=== PATIENT | male | born 1980 | race Caucasian/White ===

== ENCOUNTER 2018-04-16 04:35 | Emergency (ER) | payer SELFPAY ==
[~2018-04-16] VITALS: Ht 185.4 cm; Wt 89.9 kg
[2018-04-16 04:38] VITALS: BP 176/103; PULSE 76; TEMP 36.7; O2SAT 99; Ht 185.4 cm; Wt 89.9 kg
[2018-04-16] MEDS ORDERED: CLIN300C2 PO (04:54)
[2018-04-16] MEDS ORDERED: HYDR-5688 PO (04:54)
[2018-04-16] MEDS ORDERED: NORCO 5/325MG HOME PACK PO ONE (05:00)
[2018-04-16] MEDS ORDERED: CLINDAMYCIN 150MG HOME PACK PO ONE (05:00)
--- NOTE | 2018-04-16 05:04 | EMERGENCY ROOM VISIT NOTE ---
History First contact with patient: 04:42 Chief Complaint: DENTAL PAIN Stated Complaint: DENTAL PAIN Nursing Triage Summary: R upper tooth ache. Pt suspects its his wisdom tooth. Pt reports pain started 1 week ago and is worse when drinking cold liquids. Pt reports [employer] pain was a 10/10. Now pain is tolerable at 3/10. Did not contact dentist. History of Present Illness The patient is a 38 year old male who presents to the Emergency Room with complaints of intermittent pain of a right upper tooth for the past 1-2 weeks. The patient states the pain has been waxing and waning and initially was improved with [id number] Tylenol. He states that over the past 2 or 3 days his discomfort has significantly worsened, and states the pain was a 10/10 earlier this evening. The patient does not have injury or trauma to the area. He is not following regularly with a dentist. He has not had fever or chills. He does report an allergy to penicillins. His discomfort is currently rated a 3 /10. It does worsen with eating and drinking. He does smoke tobacco. No fevers or chills. No facial swelling. Review of Systems More than 10 systems were reviewed and otherwise negative with the exception of history of present illness. Past Medical/Surgical History No chronic medical disease Family History No pertinent family history Social History Smoking Status: Current Every Day Smoker Alcohol Use: occasionally Drug Use: none Housing Status: lives with family Occupation Status: employed Current/Historical Medications Scheduled Clindamycin Hcl (Cleocin), 300 MG PO QID Scheduled PRN Hydrocodone/Acetaminophen 5MG/325MG ([place] 5MG/325MG), 1-2 TABLET PO Q6 PRN for Pain Physical Exam Vital Signs Date Time Temp Pulse Resp B/P (MAP) Pulse Ox O2 Delivery O2 Flow Rate FiO2 04/16/18 04:38 36.7 76 16 176/103 99 Room Air Physical Exam VITALS: Vitals are noted on the nurse's note and reviewed by myself. Vital signs stable. GENERAL: White male who appears in no acute distress. He is cooperative with the examination. MOUTH: Mucous membranes moist. Dentition in overall repair. The right upper wisdom tooth, #1 tooth, is broken posteriorly and appears to be exiting at an angle from normal anatomic position. This tooth is tender to percussion without obvious abscess. Uvula is midline. No tenderness underneath the tongue. No facial swelling or evidence of Celso's. NECK: Supple without nuchal rigidity. No lymphadenopathy. No thyromegaly. Cervical spine is nontender. HEART: Regular rate and rhythm without murmurs gallops or rubs. LUNGS: Clear to auscultation bilaterally without wheezes, rales or rhonchi. No retractions or accessory muscle use. Medical Decision & Procedures ED Course Physical exam and history were performed. Nursing notes, EMR, and Medication List were personally reviewed. Patient appears to have right upper dental pain for the past several days. On examination the patient does have a broken tooth that is entering the oropharynx at an angle. This is likely the wisdom tooth, #1 tooth. No other significant infectious findings are noted. The patient has never been seen here for dental related complaints. He will be given a course of clindamycin and Vicodin. The patient is to follow with a dentist as soon as reasonably possible for on ER with any new, worsening, or concerning symptoms. The chart was completed utilizing [facility] Speech Voice Recognition Software. Grammatical errors, random word insertions, pronoun errors, and incomplete sentences are an occasional consequence of this system due to software limitations, ambient noise, and hardware issues. Any formal questions or concerns about the content, text, or information contained within the body of this dictation should be directly addressed to the provider for clarification. . Medical Decision Differential diagnosis includes, but is not limited to: Dental pain, abscess, cellulitis, Celso's, facial infection, and others [place] Drug Monitoring Program Search Results: patient reviewed within database, no issues identified Impression Primary Impression: Pain, dental Departure Information Dispostion Home / Self-Care Condition GOOD Prescriptions Hydrocodone/Acetaminophen 5MG/325MG ([place] 5MG/325MG) Tab 1-2 TABLET PO Q6 Y for Pain, #15 TAB For Initial Treatment Prov: Gomez Peters PA-C 04/16/18 Clindamycin Hcl (CLEOCIN) 300 Mg Cap 300 MG PO QID for 10 Days, #40 CAP Prov: Gomez Peters PA-C 04/16/18 Forms HOME CARE DOCUMENTATION FORM, IMPORTANT VISIT INFORMATION Patient Instructions My [facility] Additional Instructions You were seen and evaluated today on an emergency basis only. This is not a substitute for, or an effort to provide, complete comprehensive medical care. It is not possible to recognize and treat all injuries or illnesses in a single emergency department visit. For this reason it is recommended that you followup with a dentist as soon as possible for definitive care. For baseline pain relief you may alternate ibuprofen and acetaminophen every 4 hours for pain control. Take 600 mg ibuprofen (Advil) and then 4 hours later take 1000 mg acetaminophen (Tylenol). Do not take more than 3000 mg acetaminophen in a single day. Clindamycin 4 times a day for 10 days. Increase dietary yogurt as this medication can cause an upset stomach. [place] (hydrocodone/acetaminophen) 5/325 mg: Take ONE or TWO pills by mouth every 6 hours as needed for worsening breakthrough pain. Do not drink or drive on [place]. This medication will likely make you tired. Do not take [place] and Tylenol at the same time as both contain acetaminophen. [place] may cause constipation. You may wish to take an ilur-sox-nahwthh stool softener like Colace if this occurs. You are welcome to return to the emergency department anytime with new, worsening, or concerning symptoms.
== END 2018-04-16 05:00 | disposition home or self-care (01) ==
LOC: C.EDB 04:36 → C.EDA 05:00
DX: K08.89 Other specified disorders of teeth and supporting structures (principal); Z88.0 Allergy status to penicillin; F17.200 Nicotine dependence, unspecified, uncomplicated

== ENCOUNTER 2024-12-30 13:53 | Inpatient (IN) ==
[2024-12-30] MEDS: OPTIRAY 320 125ml IV ONE (14:26)
[2024-12-30 14:27] LABS: iSTAT Creatinine 1.5 mg/dl (0.6-1.3); iSTAT Hemoglobin 15.6 g/dl (14.0-18.0); iSTAT Ionized Calcium 1.2 mmol/l (1.12-1.32); iSTAT Potassium 4.3 mmol/L (3.3-5.0)
[2024-12-30 14:29] LABS: Basophils % (auto) 0.7 %; Eosinophils # (auto) 0.02 K/uL (0.00-0.50); Eosinophils % (auto) 0.1 %; Hematocrit (blood only) 43.8 % (42.0-52.0); Hemoglobin 15.4 g/dl (14.0-18.0); Immature Granulocytes # (auto) 0.05 K/uL (0.01-0.20); Immature Granulocytes % (auto) 0.3 %; Lymphocytes # (auto) 1.89 K/uL (1.20-3.40); Lymphocytes % (auto) 13.2 %; Mean Corpuscular Hemoglobin 31.3 pg (25.0-34.0); Mean Corpuscular Hgb Conc 35.2 g/dL (32.0-36.0); Mean Platelet Volume 10.5 fL (9.4-12.4); Monocytes # (auto) 0.56 K/uL (0.11-0.59); Monocytes % (auto) 3.9 %; Neutrophils # (auto) 11.74 K/uL (1.40-6.50); Neutrophils % (auto) 81.8 %; Platelet Count 390 K/uL (130-400); RDW Coefficient of Variation 13.1 % (11.5-14.5); RDW Standard Deviation 42.7 fL (36.4-46.3); Red Blood Count 4.92 M/uL (4.70-6.10); White Blood Count 14.36 K/ul (4.8-10.8)
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
--- NOTE | 2024-12-30 14:33 | XRay Report ---
XR chest 1V portable HISTORY: 44 years-old Male neuro deficit, acute stroke suspected acute stroke like symptoms COMPARISON: CTA neck of same day TECHNIQUE: AP view of the chest FINDINGS: Cardiomediastinal and hilar silhouettes are unchanged. No pneumothorax, pleural effusion, airspace co nsolidation or pulmonary edema. Bones of the chest appear grossly intact. IMPRESSION: No acute process. ACT 112: Negative or not required by law. The above report was generated using voice recognition software. It may contain grammatical, syntax o r spelling errors. Electronically signed by: Imtiaz Molina M.D. 12/30/2024 2:31 PM
--- NOTE | 2024-12-30 14:37 | CT Scan Report ---
CT ANGIOGRAPHY OF THE NECK WITH CONTRAST CLINICAL HISTORY: neuro deficit, acute stroke suspected COMPARISON STUDY: No previous studies for comparison. Technique: CT angiography of the carotid and vertebral arteries was obtained using Optiray and 3D rec onstruction on an independent workstation. NASCET criteria was utilized. Automated exposure control was utilized for the study. A dose lowering technique was utilized adhering to the principles of ALA RA. CT DOSE: 1088.97 mGy.cm Findings: Visualized portions of the lung apices are unremarkable. There is no cervical lymphadenopat hy. There are no cervical spine fractures. The bilateral common carotid, cervical internal carotid an d vertebral arteries are patent. There is mild plaque within the common carotid and internal carotid arteries without stenosis. No dissection or aneurysm within the neck is present. The right vertebral artery is dominant and patent. The left vertebral artery is diminutive, likely on a congenital basis. CT of the head and CTA of the head will be reported separately. There are secretions within the righ t maxillary sinus. The left maxillary sinus is largely opacified. IMPRESSION: 1. No stenosis or dissection within the bilateral common carotid or cervical internal carotid arterie s. Mild atherosclerotic plaque. 2. Dominant, patent right vertebral artery. Diminutive left vertebral artery, likely on a congenital basis. ACT 112: Negative or not required by law. Electronically signed by: Silverio Zaragoza M.D. 12/30/2024 2:36 PM
[2024-12-30] MEDS: SODIUM CHLORIDE 0.9% 1,000 ML IV ONE (14:44)
[2024-12-30 14:46] LABS: Albumin Level 4.9 gm/dl (3.4-5.0); Bilirubin,Total 1.4 mg/dl (0.2-1.0); Calcium 9.5 mg/dl (8.6-10.3); Magnesium 2.1 mg/dl (1.7-2.4)
--- NOTE | 2024-12-30 14:47 | CT Scan Report ---
CT angio head w con, CT head/brain wo con CLINICAL HISTORY: 44 years-old Male with neuro deficit, acute stroke suspected. Acute strokelike s ymptoms COMPARISON STUDY: CTA neck of same day TECHNIQUE: Unenhanced axial CT scan of the brain is performed. Subsequently, following the IV adminis tration of 115 cc of Optiray, CT angiogram of the brain was performed from the skull base to the vert ex. Images are reviewed in the axial, sagittal, and coronal planes. 3-D MIPS images are created and a ssessed. IV contrast was administered without complication. All measurements were obtained according to NASCET criteria. A dose lowering technique was utilized adhering to the principles of ALARA. FINDINGS: CT BRAIN: There is no acute intracranial hemorrhage, midline shift, hydrocephalus, intra-axial mass, acute terr itorial infarct or acute extra-axial collections. No abnormal intra-axial or extra-axial enhancement. White matter hypodensities likely representing chronic microvascular ischemic disease. Ill-defined 3 cm hypodense focus within the left frontal lobe jones radiata and lentiform nucleus, image 17 serie s 2. Probable chronic bilateral frontal and left cerebral infarcts with encephalomalacia. Additional probable chronic left cerebellar infarct measuring 4 cm. Probable arachnoid cyst abutting the adjacent left frontal and temporal lobes appears a 5.7 x 2.2 x 7 .7 cm on image 15 series 2 and likely originates from the middle cranial fossa on the left and causes at least mild mass effect upon the adjacent cerebrum. No skull fracture. Mastoid air cells are clear . Paranasal sinus disease includes moderate to severe mucosal thickening of the maxillary sinuses wit h right maxillary air-fluid level. CT ANGIOGRAM OF THE BRAIN: The imaged bilateral internal carotid arteries are patent. The bilateral anterior and middle cerebral arteries are also patent. The right vertebral artery is dominant. The left humeral artery appears to be developmentally diminutive. The basilar and posterior cerebral arteries are patent. There is no a neurysm, high-grade stenosis, or proximal branch occlusion identified. Dural sinuses appear patent. IMPRESSION: 1. No acute intracranial hemorrhage, midline shift or acute territorial infarct. 2. There are several scattered areas of encephalomalacia noted within the cerebrum and cerebellum sug gestive of chronic infarcts. 3. Age indeterminate possibly acute or subacute 3 cm infarct of the left frontal lobe jones radiata and lentiform nucleus. Correlate with patient presentation to determine acuity. 4. 7.7 cm arachnoid cyst likely originates from the left middle cranial fossa and causes at least mil d mass effect upon the adjacent cerebrum. ACT 112: Negative or not required by law. The above report was generated using voice recognition software. It may contain grammatical, syntax o r spelling errors. Electronically signed by: Imtiaz Molina M.D. 12/30/2024 2:45 PM
[2024-12-30 14:49] LABS: INR 1.1 (0.9-1.1); Partial Thromboplastin Time 26 Seconds (21-31); Prothrombin Time 11.4 Seconds (9.0-12.0)
[2024-12-30 14:52] LABS: Albumin Globulin Ratio 1.5 (0.9-2); BUN Creatinine Ratio 17.5 (10-20); Creatinine Clr Calc Pharmacy 83.7 ml/min; Globulin 3.3 gm/dl (2.5-4.0); Total Protein 8.2 gm/dl (6.0-8.3)
[2024-12-30 14:55] LABS: Troponin I High Sensitivity 5.4 pg/ml (0-20)
[2024-12-30] MEDS: ASPIRIN CHEW 324 MG PO STA (15:43)
[2024-12-30] MEDS: TICAGRELOR 90 MG TAB PO ONE (15:43)
[2024-12-30] MEDS: ATORVASTATIN 40 MG TAB PO STA (15:59)
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
[2024-12-30] MEDS ORDERED: PHARMACIST DISCHARGE MED REC CONSULT PRN (18:55)
[2024-12-30] MEDS: GADOBUTROL 65ML VIAL IV ONE (19:32)
--- NOTE | 2024-12-30 19:59 | Magnetic Resonance Report ---
MRI BRAIN WITH and WITHOUT CONTRAST TECHNIQUE: An MRI examination of the brain was performed utilizing sagittal and axial T1-weighted images as well as axial T2-weighted, FLAIR, gradient echo and diffusion-weighted images. Postcontrast T1-weighted images were also acquired in axial and sagittal planes. IV CONTRAST: 8 mL of Gadavist was intravenously administered. INDICATION: Stroke COMPARISON: None. CT examinations from the same day are not viewable in our system for comparison FINDINGS: There are scattered areas of diffusion restriction in the left basal ganglia, left frontal and parietal lobes representing acute/subacute infarctions in the left MCA territorial distribution. No evidence of appreciable hemorrhagic transformation or midline shift Chronic encephalomalacia and gliosis are noted in the left cerebellum, left parietal lobe and bilateral frontal lobes from prior insults. There is a sizable arachnoid cyst over the left cerebral convexity exerting mild mass effect. There is no suspicious parenchymal or extra-axial enhancement. Rind of T1 hyperintensity over the encephalomalacia of left parietal lobe likely represent laminar necrosis The cerebellar tonsils are normal in position. The pituitary gland is not enlarged. There appears to be narrowing the flow-void of the left MCA M1 segment No intraorbital soft tissue mass lesion is observed. Moderate paranasal sinus disease. IMPRESSION: Acute to subacute infarctions in the left MCA territory distribution above. No evidence of significant hemorrhagic transformation or midline shifting. Multifocal areas of encephalomalacia and gliosis from prior insult involving the left cerebral and bilateral cerebral hemispheres Electronically signed by Magdy King 12-30-2024 7:58 PM
[2024-12-31 06:21] LABS: Basophils # (auto) 0.11 K/uL (0.00-0.20); Basophils % (auto) 1.2 %; Eosinophils # (auto) 0.21 K/uL (0.00-0.50); Eosinophils % (auto) 2.2 %; Hematocrit (blood only) 40.4 % (42.0-52.0); Hemoglobin 13.9 g/dl (14.0-18.0); Immature Granulocytes # (auto) 0.02 K/uL (0.01-0.20); Immature Granulocytes % (auto) 0.2 %; Lymphocytes % (auto) 25.5 %; Mean Corpuscular Hemoglobin 31.2 pg (25.0-34.0); Mean Corpuscular Hgb Conc 34.4 g/dL (32.0-36.0); Mean Corpuscular Volume 90.6 fL (80.0-100.0); Mean Platelet Volume 10.3 fL (9.4-12.4); Monocytes # (auto) 0.65 K/uL (0.11-0.59); Monocytes % (auto) 6.9 %; Neutrophils # (auto) 6.04 K/uL (1.40-6.50); Platelet Count 340 K/uL (130-400); RDW Coefficient of Variation 13.2 % (11.5-14.5); Red Blood Count 4.46 M/uL (4.70-6.10); White Blood Count 9.43 K/ul (4.8-10.8)
[2024-12-31 06:47] LABS: BUN Creatinine Ratio 19.2 (10-20); Calcium 8.9 mg/dl (8.6-10.3); Creatinine Clr Calc Pharmacy 135.2 ml/min; Potassium 3.9 mmol/L (3.5-5.1)
--- NOTE | 2024-12-31 07:23 | Communication Note ---
Date of Service: December 31, 2024 Radiology called and said patient had significant left MCA stroke. Saw patient and was alert and oriented. Could tell his name and knows in hospital. Not a ccurate with current dates. No facial droop seen.Strength 5/5 in all extremities. NO pronator drift. Called [facility] and also sent MRI images. [facility] sanitation associate Dr. Mehta reviewed MRI and also CTA head and neck done earlier and said no large vessel occlusion seen on CTA scans and medical management recommended.
[2024-12-31 08:43] LABS: Estimated Average Glucose 111 mg/dl; Hemoglobin A1C 5.5 % (4.5-5.6)
[2024-12-31] MEDS: ATORVASTATIN 40 MG TAB PO SCH (09:29)
[2024-12-31] MEDS: ASPIRIN 81 MG ECTAB PO SCH (09:29)
[2024-12-31] MEDS: HEPARIN SOD 5,000 UNIT/0.5 ML VIAL SQ SCH (10:08)
[2024-12-31] MEDS: TICAGRELOR 90 MG TAB PO SCH (10:08)
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
[2024-12-31 15:57] LABS: Appearance Urine Clear (Clear); Bilirubin Urine Negative (Negative); Blood Urine Negative (Negative); Color Urine Dark Yellow; Glucose Urine UA Negative (Negative); Ketones Urine 1+ (Negative); Leukocyte Esterase Urine Negative (Negative); Nitrite Urine Negative (Negative); Protein Urine Negative (Negative); Specific Gravity Urine 1.024 (1.000-1.030); Urobilinogen Urine Negative (Negative)
[2025-01-01 05:51] LABS: Basophils # (auto) 0.11 K/uL (0.00-0.20); Basophils % (auto) 1.1 %; Eosinophils # (auto) 0.21 K/uL (0.00-0.50); Eosinophils % (auto) 2.2 %; Hematocrit (blood only) 41.9 % (42.0-52.0); Hemoglobin 14.5 g/dl (14.0-18.0); Immature Granulocytes # (auto) 0.02 K/uL (0.01-0.20); Immature Granulocytes % (auto) 0.2 %; Lymphocytes # (auto) 2.48 K/uL (1.20-3.40); Lymphocytes % (auto) 25.6 %; Mean Corpuscular Hemoglobin 31.1 pg (25.0-34.0); Mean Corpuscular Hgb Conc 34.6 g/dL (32.0-36.0); Mean Corpuscular Volume 89.9 fL (80.0-100.0); Mean Platelet Volume 10.2 fL (9.4-12.4); Monocytes # (auto) 0.71 K/uL (0.11-0.59); Monocytes % (auto) 7.3 %; Neutrophils # (auto) 6.14 K/uL (1.40-6.50); Neutrophils % (auto) 63.6 %; Platelet Count 318 K/uL (130-400); RDW Coefficient of Variation 13.2 % (11.5-14.5); RDW Standard Deviation 43.8 fL (36.4-46.3); Red Blood Count 4.66 M/uL (4.70-6.10); White Blood Count 9.67 K/ul (4.8-10.8)
[2025-01-01 06:05] LABS: BUN Creatinine Ratio 16.1 (10-20); Calcium 8.8 mg/dl (8.6-10.3); Creatinine Clr Calc Pharmacy 113.4 ml/min; Phosphorus 2.9 mg/dl (2.5-4.9); Potassium 3.8 mmol/L (3.5-5.1)
--- NOTE | 2025-01-01 09:39 | Electrocardiogram Report ---
Test Reason : Blood Pressure : */* mmHG Vent. Rate : 98 BPM Atrial Rate : 98 BPM P-R Int : 140 ms QRS Dur : 84 ms QT Int : 360 ms P-R-T Axes : 32 -12 47 degrees QTcB Int : 459 ms Sinus rhythm with Premature supraventricular complexes Otherwise normal ECG No previous ECGs available Confirmed by Gomez Black ([id number]) on 01/01/2025 9:39:08 AM Referred By: REFERRED SELF Confirmed By: Gomez Black
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
[2025-01-02 06:08] LABS: Basophils % (auto) 0.9 %; Eosinophils # (auto) 0.18 K/uL (0.00-0.50); Eosinophils % (auto) 1.7 %; Hematocrit (blood only) 42.6 % (42.0-52.0); Hemoglobin 14.7 g/dl (14.0-18.0); Immature Granulocytes # (auto) 0.02 K/uL (0.01-0.20); Immature Granulocytes % (auto) 0.2 %; Lymphocytes # (auto) 2.19 K/uL (1.20-3.40); Lymphocytes % (auto) 20.7 %; Mean Corpuscular Hgb Conc 34.5 g/dL (32.0-36.0); Mean Corpuscular Volume 89.9 fL (80.0-100.0); Mean Platelet Volume 10.3 fL (9.4-12.4); Monocytes % (auto) 6.6 %; Neutrophils # (auto) 7.37 K/uL (1.40-6.50); Neutrophils % (auto) 69.9 %; Platelet Count 327 K/uL (130-400); RDW Coefficient of Variation 13.2 % (11.5-14.5); RDW Standard Deviation 43.5 fL (36.4-46.3); Red Blood Count 4.74 M/uL (4.70-6.10); White Blood Count 10.56 K/ul (4.8-10.8)
[2025-01-02 06:28] LABS: BUN Creatinine Ratio 18.7 (10-20); Calcium 8.9 mg/dl (8.6-10.3); Creatinine Clr Calc Pharmacy 115.9 ml/min; Potassium 4.3 mmol/L (3.5-5.1)
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
[2025-01-03 03:20] VITALS: O2SAT 98
[2025-01-03 07:17] VITALS: TEMP 98.1
[2025-01-03 11:23] VITALS: PULSE 55; RESP 18
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
[2025-01-03 13:13] VITALS: BP 178/98
== END 2025-01-03 13:41 | disposition home or self-care (01) | DRG 65 ==
LOC: ED 13:53 → SUATTDRO 17:13 → 4W 17:13